=== PATIENT | male | born 1965 | race Caucasian/White ===

== ENCOUNTER 2018-12-01 11:25 | Day surgery (SDC) | payer MEDICARE ==
[~2018-12-01 11:25] MED LIST: ACETAMINOPHEN 1,000 MG/100 ML BTL IVPB ONE; CEFAZOLIN 1G VIAL IVP ONE; CEFAZOLIN 2 Gram 2 GM/50 ML BAG IVPB ONE; WATER STERILE FOR INJECTION 20 ML VIAL MC ONE
[2018-12-01] MEDS ORDERED: SEVOFLURANE 250 ML INH ONE (11:26)
[2018-12-01] MEDS ORDERED: FENTANYL PF 100MCG/2ML VIAL IV ONE (11:26)
[2018-12-01] MEDS ORDERED: ONDANSETRON HCL IV 4 MG/2 ML VIAL IVP ONE (11:26)
[2018-12-01] MEDS ORDERED: LIDOCAINE 2% MDV (20MG/ML) 20ML VIAL IV ONE (11:26)
[2018-12-01] MEDS ORDERED: ROPIVACAINE HCL (NAROPIN) /PF 5MG/ML 20ML VIAL IV ONE (11:26)
[2018-12-01] MEDS ORDERED: DEXAMETHASONE 4 MG/ML 1ML VIAL IVP ONE (11:26)
[2018-12-01] MEDS ORDERED: PROPOFOL 10 MG/ML VIAL IV ONE (11:26)
[2018-12-01] MEDS ORDERED: MIDAZOLAM HCL 2MG/2ML VIAL IV ONE (11:26)
[2018-12-01] MEDS ORDERED: RINGERS SOLUTION,LACTATED 1,000 ML IV ONE ×2 (12:00→13:47)
[2018-12-01] MEDS ORDERED: BUPIVACAINE 0.5% W/EPI MPF 30 ML VIAL SQ ONE (13:05)
--- NOTE | 2018-12-02 10:00 | Operative Note ---
DATE OF SURGERY: 12/01/2018 PREOPERATIVE DIAGNOSES: 1. Right carpal tunnel syndrome. 2. Right cubital tunnel syndrome. OPERATION: 1. Right cubital tunnel release. 2. Right carpal tunnel release. STAFF SURGEON: Bryant Kwong MD ANESTHESIA: General. PREPARATION: Chloraprep. INDIVIDUAL CONSIDERATIONS: None. PROCEDURE: The patient was taken to the operating room and placed supine on the operating room table. He had a successful induction of a general anesthetic. His right upper extremity was prepped and draped in the usual fashion. The patient's cubital tunnel was operated on first. He had a small curvilinear incision directly over the ulnar nerve behind the medial epicondyle. Skin was infiltrated with 0.5% Marcaine with epinephrine prior. Sharp dissection carried down through the skin. I palpated the nerve in the tunnel and then careful sharp dissection right over the top of it, made a greta in the tunnel, and then carefully had a direct view, released it proximally and distally and freed up the nerve. It was released proximally as it disappeared into the arm and then distally as it disappeared into the flexor pronator group of the forearm. After irrigation, the wound was closed with a running 3-0 Stratafix. Attention was now placed on the carpal tunnel problem. Incision was made longitudinally and then just barely crossing the wrist crease, the flexion crease to the wrist on an ulnar degree of 45 degrees. The skin was again infiltrated with 0.5% Marcaine with epinephrine prior. Sharp dissection carried down through skin and subcutaneous tissues. Small veins were coagulated with a Bovie. Sharp dissection carried down through the palmar fascia and carefully through the transverse metacarpal fascia distally to the superficial arch of the recurrent branch and proximally to the antebrachial fascia. The nerve looked contused but was otherwise intact. Tourniquet was let down and hemostasis was obtained with a Bovie. After irrigation, the skin was approximated with interrupted 4-0 nylon in a vertical mattress fashion. A sterile bulky compressive hand dressing was applied to the wrist and a bulky dressing applied to the elbow. He was taken back to recovery in good condition. There were no complications. [facility]
== END 2018-12-01 14:40 | disposition home or self-care (01) ==
LOC: SUR 11:25
PROVIDERS: ATTEND Orthopaedic Surgery
DX: G56.01 Carpal tunnel syndrome, right upper limb (principal); G56.21 Lesion of ulnar nerve, right upper limb; I10 Essential (primary) hypertension
CPT/HCPCS: 76942; 93005; J0690; J2405; J7120